=== PATIENT | male | born 1955 | race Caucasian/White ===

== ENCOUNTER → 2023-05-20 06:22 | Day surgery (SDC) | payer MEDICARE, SELFPAY | LOC: GI 06:22 | PROVIDERS: ATTENDING PHYSICIAN Internal Medicine; FAMILY PHYSICIAN Internal Medicine | DX: Z12.11 Encounter for screening for malignant neoplasm of colon (principal); Z86.010 Personal history of colon polyps; N40.0 Benign prostatic hyperplasia without lower urinary tract symptoms | CPT/HCPCS: G0105 ==

== ENCOUNTER → 2023-06-29 16:57 | Outpatient (REF) | payer MEDICARE, SELFPAY | LOC: RAD 16:57 | PROVIDERS: ATTENDING PHYSICIAN Internal Medicine | DX: K59.00 Constipation, unspecified (principal); K40.90 Unilateral inguinal hernia, without obstruction or gangrene, not specified as recurrent | CPT/HCPCS: 74019 ==

== ENCOUNTER → 2024-12-19 12:13 | Outpatient (REF) | payer MEDICARE, SELFPAY | LOC: RAD 12:13 | PROVIDERS: ATTENDING PHYSICIAN Internal Medicine; FAMILY PHYSICIAN Internal Medicine | DX: R14.0 Abdominal distension (gaseous) (principal) | CPT/HCPCS: 74019 ==